=== PATIENT | female | born 1965 | race African-American/Black ===

== ENCOUNTER 2024-05-05 06:53 | Outpatient (CLI) | payer OTHER, SELFPAY ==
--- NOTE | ~2024-05-05 | MR_ITS ---
EXAMINATION: MR shoulder RT wo con DATE: 05/05/2024 07:48 INDICATION: Right rotator cuff tear presenting with right shoulder pain TECHNIQUE: Magnetic resonance imaging (MRI) of the right shoulder was performed without intravenous c ontrast. Sequences included axial PD-weighted FS FSE, coronal oblique PD-weighted FS FSE, coronal obl ique T2-weighted FS FSE, sagittal PD-weighted FS FSE, and sagittal T1-weighted SE. COMPARISON: None. FINDINGS: Coracoacromial arch: The acromion undersurface is curved in morphology (type II). The coracoacromial ligament is normal. M ild acromioclavicular osteoarthritis with small focus of low signal intensity likely gas within a deg enerative subarticular cyst at the clavicular side of the joint space. Rotator cuff: Moderate supraspinatus and mild infraspinatus tendinopathy with partial-thickness intrasubstance tear along the superior facet footplate of the supraspinatus tendon which measures 4 mm AP and involves u p to one third of the tendon thickness. Mild subscapularis tendinopathy without tear. The teres minor tendon is normal. Normal rotator cuff muscle bulk and signal. Biceps tendon, glenoid labrum and glenohumeral cartilage: Long head of the biceps tendon is normal. Glenoid labrum is normal. Glenohumeral cartilage is normal. Fluid: Physiologic amount of fluid in the glenohumeral joint space. Disproportionate mild increased fluid wi th mild tenosynovitis at the long head biceps tendon sheath. No loose osteochondral bodies. Small elisabeth unt of fluid in the subacromial/subdeltoid bursa consistent with mild bursitis. Bones: Bone alignment is normal. No fracture or pathologic marrow replacing process. Degenerative cystlike c hanges along the greater tuberosity likely related to chronic rotator cuff disease. IMPRESSION: 1. Mild to moderate rotator cuff tendinopathy, severe at the supraspinatus tendon where there is a ve ry small mild intrasubstance tear along the superior facet footplate. 2. Mild bicipital tenosynovitis with normal long head biceps tendon. 3. Mild acromioclavicular osteoarthritis with mild underlying subacromial/subdeltoid bursitis. Reviewed, dictated and finalized at location B. BUILDER IMPRESSION: 1. Mild to moderate rotator cuff tendinopathy, severe at the supraspinatus tend on where there is a very small mild intrasubstance tear along the superior face t footplate. 2. Mild bicipital tenosynovitis with normal long head biceps tendon. 3. Mild acromioclavicular osteoarthritis with mild underlying subacromial/subde ltoid bursitis.
--- OUTSIDE RECORDS SUMMARY | 2024-05-05 06:57 | XMS_ITS | Patient Health Summary ---
Author Organization [facility] Address [address] [place] [address] Care Team Providers Care Electric Range Assembler Name Role Phone Starr Davis MD Primary Care Provider Note from [facility],non-owned Affiliates and Associated Physician Practices is amultiple site organization consisting of ambulatory clinics and hospital sitesin [place], [place], [place] and [place]. This disclosure is being madepursuant to the Care Everywhere program and may not contain all information available regarding this patient. Last updated 17.[facility] Allergies No known active allergies Medications * Be aware that medications may not be up to date on this document. Alwaysverify current medications with the patient. * diclofenac sodium (VOLTAREN) 75 MG tablet TBEC(Started 12/22/2012) Take 1 Tab by mouth 2 times daily. 3 refills left Active Problems Problem Noted Date Diagnosed Date Degeneration of lumbar or lumbosacral interverte bral disc 12/24/2012 Social History Tobacco Use Types Packs/Day Years Used Date Smoking Tobacco: Some Days Alcohol Use Standard Drinks/Week Comments Yes 0 (1 standard drink = 0.6 oz pur e alcohol) Sex and Gender Information Value Date Recorded Sex Assigned at Not on file Gender Identity Not on file Sexual Orientation Not on file Last Filed Vital Signs Vital Sign Reading Time Taken Comments Blood Pressure 157/100 12/22/2012 11:21 AM CDT Pulse 85 06/10/2012 2:20 PM CDT Temperature 36.8 C (98.2 F) 06/10/2012 2:20 PM CDT Respiratory Rate 16 06/10/2012 2:20 PM CDT Oxygen Saturation - - Inhaled Oxygen Concentration - - Weight 116.6 kg (257 lb) 12/31/2012 10:11 AM CDT Height 165.1 cm (5' 5 ) 12/31/2012 10:11 AM CDT Body Mass Index 42.77 12/31/2012 10:11 AM CDT Procedures * XR KNEE LEFT 4VW OR MORE(Performed 12/31/2012) Performed for Pain in joint, lower leg * XR KNEE LEFT 4VW OR MORE(Performed 12/24/2012) * TRANSFERRIN(Performed 10/29/2011) * FERRITIN(Performed 10/29/2011) * D-DIMER(Performed 10/29/2011) * COMPREHENSIVE METABOLIC PANEL(Performed 10/29/2011) * RETIC COUNT(Performed 10/29/2011) * CBC W AUTO DIFFERENTIAL(Performed 10/29/2011) * CARDIOLIPIN ANTIBODY IGM(Performed 10/01/2011) * CARDIOLIPIN ANTIBODY IGG(Performed 10/01/2011) * CARDIOLIPIN ANTIBODY IGA(Performed 10/01/2011) * BETA-2 GLYCOPROTEIN 1 ANTIBODY IGM(Performed 10/01/2011) * BETA-2 GLYCOPROTEIN 1 ANTIBODY IGG(Performed 10/01/2011) * BETA-2 GLYCOPROTEIN 1 ANTIBODY IGA(Performed 10/01/2011) * LUPUS ANTICOAGULANT PANEL(Performed 10/01/2011) * ARABELLA VIPER VENOM DILUTE(Performed 10/01/2011) * PT MIX 03/11(Performed 10/01/2011) Results * XR KNEE 4+ VW LEFT (12/31/2012 10:05 AM CDT) Only the most recent of2 resultswithin the time period is included. Anatomical Region Laterality Modality Lower Extremity Radiographic Maite ging 12/31/2012 12:2 2 PM CDT Narrative 12/31/2012 12:38 PM CDT LEFT KNEE, 4 VIEW HISTORY: Pain. FINDINGS: There are tricompartmental hypertrophic degenerative changes with medial-sided joint space narrowing. Edited by Aretha Hair on 12/31/2012 12:30 PM Procedure Note Carmine Johnson MD - 12/31/2012 LEFT KNEE, 4 VIEW HISTORY: Pain. FINDINGS: There are tricompartmental hypertrophic degenerative changes with medial-sided joint space narrowing. Edited by Aretha Hair on 12/31/2012 12:30 PM Marco Mckenna MD DIAGNOSTIC IMAGING ORDERABLES * TRANSFERRIN (10/29/2011 10:20 AM CDT) Transferrin 344 174 - 382 mg/dL [facility] 10/29/2011 10:2 0 AM CDT 10/29/2011 11:15 AM CDT Joss Shah MD LAB - CHEMISTRY [place] Performing Organization Address [facility] Co de Phone Number [address] [phone] * (ABNORMAL) FERRITIN (10/29/2011 10:20 AM CDT) Pathologist [facility] Ferritin 1(L) 13 - 204 ng/mL [facility] 10/29/2011 10:2 0 AM CDT 10/29/2011 11:15 AM CDT Joss Shah MD LAB - CHEMISTRY [place] Performing Organization Address [facility] de Phone Number [address] [phone] * (ABNORMAL) D-DIMER (10/29/2011 10:19 AM CDT) [facility] D-Dimer Quantitative 0.55(H) 0.0 - 0.50 mcg/mL [facility] Comment: In the absence of clinical symptoms, a value less than or equal to 0.5 reliably excludes the diagnosis of acute PE/DVT 10/29/2011 10:1 9 AM CDT 10/29/2011 10:26 AM CDT Joss Shah MD LAB - COAGULATION OR DERABLES Performing Organization Address [facility] [place] [address], [facility] [phone] * RETIC COUNT (10/29/2011 10:19 AM CDT) [facility] Reticulocyte % 1.1 0.3 - 2.0 % [facility] Reticulocyte Absolute 0.05 0.02 - 0.10 # [facility] 10/29/2011 10:1 9 AM CDT 10/29/2011 10:26 AM CDT Joss Shah MD LAB - HEMATOLOGY ORD ERABLES [facility] [address] [phone] * (ABNORMAL) CBC W AUTO DIFFERENTIAL (10/29/2011 10:19 AM CDT) WBC 6.1 3.5 - 10.5 10^3/uL [facility] RBC 4.34 3.90 - 5.00 10^6/uL [facility] Hemoglobin 9.0(L) 12.0 - 15.5 g/dL [facility] Hematocrit 30.2(L) 35.0 - 45.0 % [facility] MCV 69.6(L) 81.0 - 97.0 FL [facility] MCH 20.7(L) 28.0 - 34.0 PG [facility] MCHC 29.8(L) 32.0 - 36.0 G/DL [facility] Platelet 428(H) 150 - 400 10^3/uL [facility] RDW 16.7(H) 11.2 - 14.8 % [facility] RDW-SD 42.9 36 - 50 FL [facility] MPV 9.4 9.3 - 12.8 FL [facility] Neutrophils % 61.2 35.0 - 70.0 % [facility] Lymphocytes % 29.2 19.7 - 55.1 % [facility] Monocytes % 8.3 3 - 15 % [facility] Eosinophils % 1.1 0.0 - 6.0 % [facility] Basophils % 0.2 0.0 - 1.5 % [facility] Neutrophils Absolute 3.8 1.7 - 7.0 10^3/uL [facility] Lymphocyte Absolute 1.8 0.8 - 2.9 10^3/uL [facility] Monocytes Absolute 0.5 0.14 - 0.66 10^3/uL [facility] Eosinophils Absolute 0.07 0.00 - 0.22 10^3/uL [facility] Basophils Absolute 0.01(L) 0.02 - 0.06 10^3/uL [facility] Differential Type AUTO DIFFERENTIAL [facility] Anisocytosis 1+ [facility] Microcytosis D 2+ [facility] Ovalocytes 1+ [facility] 10/29/2011 10:1 9 AM CDT 10/29/2011 10:26 AM CDT Joss Shah MD LAB - HEMATOLOGY ORD ERABLES [facility] [address] [place] [address] * (ABNORMAL) COMPREHENSIVE METABOLIC PANEL (10/29/2011 10:19 AM CDT) BUN 10 7 - 26 mg/dL [facility] Creatinine 0.8 0.6 - 1.2 mg/dL [facility] eGFR by MDRD > 60 ML/MIN [facility] Comment: Chronic kidney disease: <60 ml/min Kidney failure: <15 ml/min Based on BSA of 1.73m2. Sodium 140 136 - 145 mmol/L [facility] Potassium 4.3 3.5 - 4.5 mmol/L [facility] Chloride 108(H) 98 - 107 mmol/L [facility] CO2 24 22 - 29 mmol/L [facility] Glucose 92 70 - 115 mg/dL [facility] Calcium 8.6 8.4 - 10.2 mg/dL [facility] Protein Total 7.1 6.0 - 8.3 g/dL [facility] Albumin 3.3(L) 3.4 - 5.0 g/dL [facility] Bilirubin Total 0.2 0.2 - 1.2 mg/dL [facility] Alkaline Phosphatase 79 40 - 150 Units/L [facility] ALT 11 0 - 55 Units/L [facility] AST 13 5 - 34 Units/L [facility] Anion Gap 12 8 - 18 [facility] BUN/Creatinine Ratio 12 7 - 23 [facility] Osmolality Calculation 273 270 - 300 mOsm/kg [facility] Albumin/Globulin Ratio 0.9(L) 1.1 - 2.3 [facility] 10/29/2011 10:1 9 AM CDT 10/29/2011 10:26 AM CDT Joss Shah MD LAB - CHEMISTRY [place] [address] [phone] * BETA-2 GLYCOPROTEIN 1 ANTIBODY IGG (10/01/2011 12:20 PM CDT) Beta-2 Glycoprotein I Antibody IgG <20.0 <20.0 [facility] 10/01/2011 12:2 0 PM CDT 10/01/2011 12:47 PM CDT Joss Shah MD LAB - SEROLOGY ORDER DENN[place] [address] [phone] * BETA-2 GLYCOPROTEIN 1 ANTIBODY IGM (10/01/2011 12:20 PM CDT) Beta-2 Glycoprotein I Antibody IgM <20.0 <20.0 [facility] 10/01/2011 12:2 0 PM CDT 10/01/2011 12:47 PM CDT Joss Shah MD LAB - SEROLOGY ORDER [place] [address] [phone] * PT MIX 03/11 (10/01/2011 12:20 PM CDT) APTT 28.3 24.0 - 38.0 SECONDS [facility] PT 12.8 12.1 - 14.8 SECONDS [facility] INR 1.0 [facility] Dilute Prothrombin Time Index 1.16 <1.31 [facility] Interpretation dPT NEGATIVE NEGATIVE S [facility] 10/01/2011 12:2 0 PM CDT 10/01/2011 12:47 PM CDT Joss Shah MD LAB - COAGULATION OR DERABLES [address] [phone] * LUPUS ANTICOAGULANT PANEL (10/01/2011 12:20 PM CDT) [facility] Buffer 43.8 SECONDS [facility] Phospholipid 40.6 SECONDS [facility] [place]OT [place] Delta Seconds 3.2 <9.0 SECONDS [facility] Interpretation [facility] NEGATIVE NEGATIVE [facility] Comment: Up to 15-20% of patients with lupus anticoagulant associated with antiphospholipid antibody syndrome (APAS) will have negative STACLOT-LA results. For these patients we recommend additional testing to include the Dilute Arabella Viper Venom Time (DRVVT) and dilute prothrombin time (Dilute PT) tests. Immunoassay measurements of anti-cardiolipin and anti-beta-2 glycoprotein 1 are recommended if the DRVVT, DIL-PT and STACLOT-LA tests are negative and there is clinical suspicion of APAS. 10/01/2011 12:2 0 PM CDT 10/01/2011 12:47 PM CDT Joss Shah MD LAB - HEMATOLOGY ORD ERABLES Performing Organization Address City/[facility]/ZIP Co de Phone Number [address] [phone] * CARDIOLIPIN ANTIBODY IGA (10/01/2011 12:20 PM CDT) Anticardiolipin Antibody IgA <15.0 <15.0 APL [facility] 10/01/2011 12:2 0 PM CDT 10/01/2011 12:47 PM CDT Joss Shah MD LAB - SEROLOGY ORDER [place] [address] [phone] * CARDIOLIPIN ANTIBODY IGM (10/01/2011 12:20 PM CDT) Anticardiolipin Antibody IgM <15.0 <15.0 MPL [facility] 10/01/2011 12:2 0 PM CDT 10/01/2011 12:47 PM CDT Joss Shah MD LAB - SEROLOGY ORDER [place] [address] [phone] * CARDIOLIPIN ANTIBODY IGG (10/01/2011 12:20 PM CDT) Anticardiolipin Antibody IgG <15.0 <15.0 GPL [facility] 10/01/2011 12:2 0 PM CDT 10/01/2011 12:47 PM CDT Joss Shah MD LAB - SEROLOGY ORDER [place] [address] [phone] * BETA-2 GLYCOPROTEIN 1 ANTIBODY IGA (10/01/2011 12:20 PM CDT) Beta-2 Glycoprotein I Antibody IgA <20.0 <20.0 [facility] 10/01/2011 12:2 0 PM CDT 10/01/2011 12:47 PM CDT Joss Shah MD LAB - [place] [address], [facility] [phone] * ARABELLA VIPER VENOM DILUTE (10/01/2011 12:20 PM CDT) LA-DRVVT Screen 1.0 <1.2 [facility] Interpretation Dilute RVV NEGATIVE NEGATIVE [facility] 10/01/2011 12:2 0 PM CDT 10/01/2011 12:47 PM CDT Joss Shah MD LAB - COAGULATION OR DERABLES [facility] [address] [place] [address] Care Teams Electric Range Assembler Relationship Specialty Start Date End Date Starr Davis MD [address] [place] [address] [place] [phone] PCP - General Family Medicine 12/26/12
--- OUTSIDE RECORDS SUMMARY | 2024-05-05 06:57 | XMS_ITS | Clinical Summary ---
Author Organization [facility] Address [address] [place] [address] Care Team Providers Care Asbestos Worker Name Role Phone Starr Davis MD Primary Care Provider Source Comments [facility],non-owned Affiliates and Associated Physician Practices is amultiple site organization consisting of ambulatory clinics and hospital sitesin [place], [place], [place] and [place]. This disclosure is being madepursuant to the Care Everywhere program and may not contain all information available regarding this patient. Last updated 17.[facility] Allergies No known active allergies Medications * Be aware that medications may not be up to date on this document. Alwaysverify current medications with the patient. Medication Sig Dispensed Refills Start Date End Date Status diclofenac sodium (VOLTAREN) 75 MG tablet TBEC Take 1 Tab by mouth 2 times daily. 60 Tab 3 12/22/2012 Active Active Problems Problem Noted Date Diagnosed Date [...] Mass Index 42.77 12/31/2012 10:11 AM CDT Plan of Treatment Health Maintenance Due Date Last Done Comments COLOGUARD (AGES 45-75) - COL ON CA SCREENING 1966 COLON MONITORING 1966 COLONOSCOPY - COLON CA SCREENING 1966 CT COLONOGRAPHY - COLON CA SCREENING 1966 Colorectal Cancer Screening 1966 FIT - COLON CA SCREENING 1966 FLEX SIG - COLON CA SCREENING 1966 LIPID TESTING 1966 MAMMOGRAM 1966 PAP SMEAR 1966 HIV SCREENING 1981 HEPATITIS C SCREENING 05/27/1984 DTAP/TDAP/TD VACCINES (1 - Tdap) 1985 HEPATITIS B VACCINE (1 of 3 - 19+ 3-dose series) 1985 PNEUMOCOCCAL VACCINE 50+ (1 of 2 - PCV) 1985 PNEUMOCOCCAL VACCINE (1 of 2 - PCV) 1985 ZOSTER VACCINE (1 of 2) 2016 COVID-19 VACCINE (1 - 2023-2 5 season) 2023 INFLUENZA VACCINE (#1) 2023 DEPRESSION SCREENING 03/11/2024 HIB VACCINE Aged Out No longer eligi ble based on patient's age to complete this topic HPV VACCINE Aged Out No longer eligi ble based on patient's age to complete this topic MENINGOCOCCAL (Group B) VACCINE Aged Out No longer eligible based on patient's age to complete this topic MENINGOCOCCAL VACCINE Aged Out No moises eladio eligible based on patient's age to complete this topic Care Teams Asbestos Worker Relationship Specialty Start Date End Date Starr Davis MD [address] [place] [address] [place] [phone] PCP - General Family Medicine 12/26/12
--- OUTSIDE RECORDS SUMMARY | 2024-05-05 06:57 | XMS_ITS | Referral Summary ---
Author Organization [email or web address] Address [address] [facility] [place] [address] Care Team Providers Care Regional Sales Associate Name Role Phone Starr Davis MD Primary Care Provider Source Comments [email or web address],non-owned Affiliates and Associated Physician Practices is amultiple site organization consisting of ambulatory clinics and hospital sitesin [place], [place], [place] and [place]. This disclosure is being madepursuant to the Care Everywhere program and may not contain all information available regarding this patient. Last updated 17.[email or web address] Allergies No known active allergies Medications * [...] 12/31/2012 10:11 AM CDT Plan of Treatment Not on file Care Teams Regional Sales Associate Relationship Specialty Start Date End Date Starr Davis MD [address] [place] [address] [place] [phone] PCP - General Family Medicine 12/26/12
--- OUTSIDE RECORDS SUMMARY | 2024-05-05 06:57 | XMS_ITS | Data Portability ---
Author Organization [place] - [facility] My Dentist, Main Office Address [address] [place] [address] Assessment No assessment recorded. Plan of Treatment Reminders Order Date Submit Date Provider Last Modified By Organization Details Last Modified Time Details Appointments None recorded. Lab HbA1c (hemoglobin A1c), blood [email or web address] (Lab), [address] [place], [address], 3 08:09:33 iron + total iron-bindin g capacity (TIBC), serum [email or web address] (Lab), [address] [place], [address], 3 08:09:33 ferritin, serum or plasma [address] (Lab), [address] [place], [address], 3 08:09:33 vitamin B12 + folate, serum or blood [email or web address] (Lab), [address] [place], [address], 3 08:09:33 vitamin D, 25-hydroxy, total, serum [address] (Lab), [address] [place], [address], 3 08:09:33 CBC 2022 023 [email or web address] [facility] (Lab), [address] [place], [address], 3 08:09:33 TSH, serum or plasma [address] (Lab), [address] [place], [address], 3 16:11:19 lipid panel, serum [address] (Lab), [address] [place], [address], 3 16:11:46 urinalysis, complete [address] (Lab), [address] [place], [address], 3 16:15:44 HbA1c (hemoglobin A1c), blood [address] (Lab), [address] [place], [address], 3 16:12:28 CMP, serum or plasma [address] (Lab), [address] [place], [address], 3 16:13:19 CBC [address] (Lab), [address] [place], [address], 3 16:14:04 Referral orthopedic surgeon referral - Please call patient to schedule an appointment . Thank you. 2024 025 [email or web address] [facility], [address], [place], [address], 5 08:55:06 physical therapist referral - Please call pt to schedule 2023 024 [facility], [address] [place], [address], 4 12:49:53 physical therapist referral 2022 [email or web address] [place] [address] Physical, [facility], [address] [place], [address], 3 08:40:13 Procedures None recorded. Surgeries None recorded. Imaging US, thyroid - Please call pt to schedule 2024 025 [facility] ([facility]), [address] [place], [address], 5 14:35:18 XR, lumbar spine 2023 024 [facility] ([facility]), [address] [place], [address], 4 10:53:23 MAMMO, screening, digital, bilateral - *please call pt to schedule* 2022 023 [facility] ([facility]), [address] [place], [address], 3 18:46:43 Medication Orders ibuprofen 800 mg tablet 2024 025 [id number], [address] , [place], [place], [id number], 5 10:10:05 cyclobenzap rine 5 mg tablet [address]23 [email or web address] [id number], [address], [place], [place], [id number], 5 09:58:13 ibuprofen 800 mg tablet 2023 024 [email or web address] [address] [id number], [address], [place], [place], [id number], 09:58:16 Patient TargetsNo targets recorded. Patient Instructions Encounter Date Encounter Id Patient Instructions Last Modified By Organization Details Last Modified Time 08/23/2022 [id number] risk assessment* MARSHAL Not availabl e 08/23/2022 14:25:27 Reason for Referral Physical Therapist Referral for Pain of bilateral knee joints Referring Physician: [facility], Encounter Date: 08/23/2022 Physical Therapist Referral for Low back pain Please call pt to schedule Referring Physician: Brit Stovall [facility] Medicine, Encounter Date: 12/19/2023 Orthopedic Surgeon Referral for Pain of right shoulder joint Please call patient to schedule an appointment. Thank you. Referring Physician: Brit Stovall [facility] Medicine, Encounter Date: 03/31/2024 Results Created Date Observation Date Name Description Value Unit Range Abnormal Flag Note LastModifiedBy Organization Detail LastModifiedTime 08/24/1908/23/2022 CBC W/O DIFFE RENTI AL white blood cells 3.8 x10'3 /uL 4.2-10 .8 low Not Available [facility] (Lab) [address] [place], [address], 08/23/2022 20:07:33 08/24/19 23 08/23/2022 CBC W/O DIFFE RENTI AL red blood cells 4.58 x10'6 /uL 3.80-5 .20 Not Available [facility] (Lab) [address] [place], [address], 08/23/2022 20:07:33 08/24/19 23 08/23/2022 CBC W/O DIFFE RENTI AL hemoglobin 12.3 g/dL 12.0-1 5.6 Not Available [facility] (Lab) [address] [place], [address], 08/23/2022 20:07:33 08/24/19 23 08/23/2022 CBC W/O DIFFE RENTI AL hematocrit 40.1 % 35.7-4 5.7 Not Available [facility] (Lab) [address] [place], [address], 08/23/2022 20:07:33 08/24/19 23 08/23/2022 CBC W/O DIFFE RENTI AL mean red cell volume 87.6 fL 82.0-9 9.0 Not Available [facility] (Lab) [address] [place], [address], 08/23/2022 20:07:33 08/24/19 23 08/23/2022 CBC W/O DIFFE RENTI AL mean red cell hemoglobin 26.9 pg 27.0-3 3.0 low Not Available [facility] (Lab) [address] [place], [address], 08/23/2022 20:07:33 08/24/19 23 08/23/2022 CBC W/O DIFFE RENTI AL mean RBC HGB concentratio n 30.7 g/dL 31.0-3 6.0 low Not Available [facility] (Lab) [address] [place], [address], 08/23/2022 20:07:33 08/24/19 23 08/23/2022 CBC W/O DIFFE RENTI AL red cell distribution width 14.7 % 11.8-1 5.5 Not Available [facility] (Lab) [address] [place], [address], 08/23/2022 20:07:33 08/24/19 23 08/23/2022 CBC W/O DIFFE RENTI AL platelets 269 x10'3 /uL 150-40 0 Not Available [facility] (Lab) [address] [place], [address], 08/23/2022 20:07:33 08/24/19 23 08/23/2022 CBC W/O DIFFE RENTI AL mean platelet volume 10.9 fL 9.0-12 .4 Not Available [facility] (Lab) [address] [place], [address], 08/23/2022 20:07:33 08/24/19 23 08/23/2022 HEMOG LOBIN A1C HA1C 6.1 % 4.0-6. 0 high Diabe kash Scree gabriel Crite stefanie: <5.7% Consi stent with absen ce of diabe kash 5.7-6 .4% Consi stent with incre ased risk for diabe kash (pred iabet es) >OR=6 .5% Consi stent with diabe kash REFER ENCE: Diabe kash Care 2016, 39(Dalton ppl.1 ):s13 -s22 Not Available [facility] (Lab) [address] [place], [address], 08/23/2022 20:29:56 08/24/19 23 08/23/2022 URINA LYSIS COMPL ETE, IRIS color YELLOW Not Available [facility] (Lab) [address] [place], [address], 08/23/2022 20:30:22 08/24/19 23 08/23/2022 URINA LYSIS COMPL ETE, IRIS appear TURBID abnormal Not Available [facility] (Lab) [address] [place], [address], 08/23/2022 20:30:22 08/24/19 23 08/23/2022 URINA LYSIS COMPL ETE, IRIS specific gravity 1.019 1.001- 1.030 Not Available [facility] (Lab) [address] [place], [address], 08/23/2022 20:30:22 08/24/19 23 08/23/2022 URINA LYSIS COMPL ETE, IRIS pH 6.5 pH_un its 5.0-9. 0 Not Available [facility] (Lab) [address] [place], [address], 08/23/2022 20:30:22 08/24/19 23 08/23/2022 URINA LYSIS COMPL ETE, IRIS leukocytes NEGATI VE elisabet/u L negati ve- Not Available [facility] (Lab) [address] [place], [address], 08/23/2022 20:30:22 08/24/19 23 08/23/2022 URINA LYSIS COMPL ETE, IRIS nitrite NEGATI VE negati ve- Not Available [facility] (Lab) [address] [place], [address], 08/23/2022 20:30:22 08/24/19 23 08/23/2022 URINA LYSIS COMPL ETE, IRIS protein NEGATI VE mg/dL negati ve- Not Available [facility] (Lab) [address] [place], [address], 08/23/2022 20:30:22 08/24/19 23 08/23/2022 URINA LYSIS COMPL ETE, IRIS glucose NORMAL mg/dL normal - Not Available [facility] (Lab) [address] [place], [address], 08/23/2022 20:30:22 08/24/19 23 08/23/2022 URINA LYSIS COMPL ETE, IRIS ketones NEGATI VE mg/dL negati ve- Not Available [facility] (Lab) [address] [place], [address], 08/23/2022 20:30:22 08/24/19 23 08/23/2022 URINA LYSIS COMPL ETE, IRIS urobilinogen NORMAL mg/dL normal - Not Available [facility] (Lab) [address] [place], [address], 08/23/2022 20:30:22 08/24/19 23 08/23/2022 URINA LYSIS COMPL ETE, IRIS bilirubin NEGATI VE mg/dL negati ve- Not Available [facility] (Lab) [address] [place], [address], 08/23/2022 20:30:22 08/24/19 23 08/23/2022 URINA LYSIS COMPL ETE, IRIS blood NEGATI VE mg/dL negati ve- Not Available [facility] (Lab) [address] [place], [address], 08/23/2022 20:30:22 08/24/19 23 08/23/2022 URINA LYSIS COMPL ETE, IRIS white blood cells 0-8 /i??h pfi?? 0-8 Not Available [facility] (Lab) [address] [place], [address], 08/23/2022 20:30:22 08/24/19 23 08/23/2022 URINA LYSIS COMPL ETE, IRIS red blood cells 0-4 /i??h pfi?? 0-4 Not Available [facility] (Lab) [address] [place], [address], 08/23/2022 20:30:22 08/24/19 23 08/23/2022 URINA LYSIS COMPL ETE, IRIS bacteria NONE Not Available [facility] (Lab) [address] [place], [address], 08/23/2022 20:30:22 08/24/19 23 08/23/2022 URINA LYSIS COMPL ETE, IRIS mucous FEW /i??l pfi?? abnormal Not Available [facility] (Lab) [address] [place], [address], 08/23/2022 20:30:22 08/24/19 23 08/23/2022 URINA LYSIS COMPL ETE, IRIS squamous epithelial MANY /i??l pfi?? abnormal Not Available [facility] (Lab) [address] [place], [address], 08/23/2022 20:30:22 08/24/19 23 08/23/2022 LIPID PANEL cholesterol 156 mg/dL 140-19 9 NIH CASEY NSUS RECOM MENDA TION FOR ELAINE STERO L: ADULT CHILD LOW RISK: <200 <170 BORDE RLINE : <200- 239 ----- HIGH RISK: >240 >200 Not Available [facility] (Lab) [address] [place], [address], 08/23/2022 21:11:21 08/24/19 23 08/23/2022 LIPID PANEL triglyceride s 60 mg/dL 0-150 NIH CASEY NSUS REPOR T RECOM MENDA TION FOR TRIGL YCERI GORDON: ADULT CHILD LOW RISK: <150 ----- BODER LINE: 150-1 99 ----- HIGH RISK: >200 ----- Not Available [facility] (Lab) [address] [place], [address], 08/23/2022 21:11:21 08/24/19 23 08/23/2022 LIPID PANEL HDL cholesterol 91 mg/dL 40- Not Available [facility] (Lab) [address] [place], [address], 08/23/2022 21:11:21 08/24/19 23 08/23/2022 LIPID PANEL LDL cholesterol, calculated 53 mg/dL 0-130 NIH CASEY NSUS REPOR T RECOM MENDA TIONS FOR LDL: ADULT CHILD LOW RISK <130 <110 (OPTI MAL LDL) <100 ----- BORDE RLINE : 130-1 59 ----- HIGH RISK: >160 >130 A TRIGL YCERI DE RESUL T >400 INVAL IDATE S THE CALCU LATIO N FOR LDL FRACT IONAT ION - THE LDL RESUL T WILL NOT BE REPOR BALBIR. Not Available [facility] (Lab) [address] [place], [address], 08/23/2022 21:11:21 08/24/19 23 08/23/2022 COMPR EHENS THOR METAB OLIC PANEL sodium 141 mmol/ L 137-14 5 Not Available [facility] (Lab) [address] [place], [address], 08/23/2022 21:11:26 08/24/19 23 08/23/2022 COMPR EHENS THOR METAB OLIC PANEL potassium 4.0 mmol/ L 3.5-5. 1 Not Available [facility] (Lab) [address] [place], [address], 08/23/2022 21:11:26 08/24/19 23 08/23/2022 COMPR EHENS THOR METAB OLIC PANEL chloride 105 mmol/ L 98-107 Not Available [facility] (Lab) [address] [place], [address], 08/23/2022 21:11:26 08/24/19 23 08/23/2022 COMPR EHENS THOR METAB OLIC PANEL carbon dioxide 26 mmol/ L 22-30 Not Available [facility] (Lab) [address] [place], [address], 08/23/2022 21:11:26 08/24/19 23 08/23/2022 COMPR EHENS THOR METAB OLIC PANEL anion gap 14.0 mmol/ L 14-22 Not Available [facility] (Lab) [address] [place], [address], 08/23/2022 21:11:26 08/24/19 23 08/23/2022 COMPR EHENS THOR METAB OLIC PANEL glucose 81 mg/dL 70-99 Not Available [facility] (Lab) [address] [place], [address], 08/23/2022 21:11:26 08/24/19 23 08/23/2022 COMPR EHENS THOR METAB OLIC PANEL BUN 18 mg/dL 8-19 Not Available [facility] (Lab) [address] [place], [address], 08/23/2022 21:11:26 08/24/19 23 08/23/2022 COMPR EHENS THOR METAB OLIC PANEL creatinine 0.72 mg/dL 0.66-1 .25 Not Available [facility] (Lab) [address], [place], [address], 08/23/2022 21:11:26 08/24/19 23 08/23/2022 COMPR EHENS THOR METAB OLIC PANEL GFR >60 Refer ence Range : [place] ge GFR Healt hy Adult : >60 mL/mi n/1.7 3 m2 Chron ic Kidne y Disea se: 15-60 mL/mi n/1.7 3 m2 Kidne y Failu re: <15/m L/min /1.73 m2 www.n iddk. nih.g ov The MDRD study equat ion has not been valid ated in child victoria <18 years of age; pregn ant women ; the elder ly >85 years of age; or in some racia l or ethni c subgr oups, such as pr nics. Outsi de the valid ated ada eters , estim ated GFR is less accur ate, requi ring clini jeffrey judgm ent on a case- by-ca se basis . Clini jeffrey inter preta tion for other races and ages must be made by the clini tiny. The MDRD study equat ion has not been valid ated for the evalu ation of serum creat inine relat ed to nutri jose l statu s or medic ation usage . For perso ns <18 years of age, a pedia tric GFR calcu lator is avail able on the [facility] websi te: https ://arianna weir.o rg/pr ofess ional s/kdo qi/gf r_cal culat or Not Available [facility] (Lab) [address] [place], [address], 08/23/2022 21:11:26 08/24/19 23 08/23/2022 COMPR EHENS THOR METAB OLIC PANEL alkaline phosphatase 92 U/L 38-126 Not Available [facility] (Lab) [address] [facility] [place], [address], 08/23/2022 21:11:26 08/24/19 23 08/23/2022 COMPR EHENS THOR METAB OLIC PANEL alanine aminotransfe rase 17 U/L 0-35 Not Available [facility] (Lab) [address] [place], [address], 08/23/2022 21:11:26 08/24/19 23 08/23/2022 COMPR EHENS THOR METAB OLIC PANEL aspartate aminotransfe rase 25 U/L 15-37 Not Available [facility] (Lab) [address] [place], [address], 08/23/2022 21:11:26 08/24/19 23 08/23/2022 COMPR EHENS THOR METAB OLIC PANEL bilirubin, total 0.60 mg/dL 0.20-1 .30 Not Available [facility] (Lab) [address] [place], [address], 08/23/2022 21:11:26 08/24/19 23 08/23/2022 COMPR EHENS THOR METAB OLIC PANEL calcium 8.8 mg/dL 8.4-10 .2 Not Available [facility] (Lab) [address] [place], [address], 08/23/2022 21:11:26 08/24/19 23 08/23/2022 COMPR EHENS THOR METAB OLIC PANEL total protein 6.9 g/dL 6.3-8. 2 Not Available [facility] (Lab) [address] [place], [address], 08/23/2022 21:11:26 08/24/19 23 08/23/2022 COMPR EHENS THOR METAB OLIC PANEL albumin 3.7 g/dL 3.4-5. 0 Not Available [facility] (Lab) [address] [place], [address], 08/23/2022 21:11:26 08/24/19 23 08/23/2022 COMPR EHENS THOR METAB OLIC PANEL globulin 3.2 g/dL 2.6-4. 2 Not Available [facility] (Lab) [address] [place], [address], 08/23/2022 21:11:26 08/24/19 23 08/23/2022 COMPR EHENS THOR METAB OLIC PANEL A/G ratio 1.2 ratio 1.0-2. 0 Not Available [facility] (Lab) [address] [place], [address], 08/23/2022 21:11:26 08/24/19 23 08/23/2022 TSH thyroid-stim ulating hormone 0.516 uIU/m L 0.465- 4.680 Not Available [facility] (Lab) [address] [place], [address], 08/23/2022 21:33:30 12/13/19 22 XR, knee, 3 view No observ ation record ed. [id number] [facility] [place] [address], [place], [address], 05/09/2022 08:54:08 08/31/19 23 08/30/2022 MAMMO , scree gabriel, digit al, bilat eral No observ ation record ed. [email or web address] [facility] [address] [place], [address], 09/06/2022 09:18:10 01/03/20 24 01/03/2024 XR, lumba r spine No observ ation record ed. [email or web address] [facility] [address] [place], [address], 01/06/2024 15:15:47 03/27/19 25 03/27/2024 imagi ng/di agnos tic resul t No observ ation record ed. [facility] [address] [place], [address], 03/28/2024 09:03:00 03/27/19 25 03/27/2024 imagi ng/di agnos tic resul t No observ ation record ed. [facility] [address] [place], [address], 03/28/2024 09:11:36 03/27/19 25 03/27/2024 imagi ng/di agnos tic resul t No observ ation record ed. [facility] [address] [place], [address], 03/28/2024 09:16:37 03/27/19 25 03/27/2024 imagi ng/di agnos tic resul t No observ ation record ed. [facility] [address] [place], [address], 03/28/2024 10:04:03 03/27/19 25 03/27/2024 imagi ng/di agnos tic resul t No observ ation record ed. [facility] [address] [place], [address], 03/28/2024 10:05:03 03/27/19 25 03/27/2024 imagi ng/di agnos tic resul t No observ ation record ed. [facility] [address] [place], [address], 03/28/2024 10:20:37 03/27/19 25 03/27/2024 imagi ng/di agnos tic resul t No observ ation record ed. [facility] [address] [place], [address], 03/28/2024 10:48:40 03/27/19 25 03/27/2024 imagi ng/di arianeos tic resul t No observ ation record ed. [facility] [address] [place], [address], 03/28/2024 10:51:43 04/10/19 25 04/10/2024 US, thyro id No observ ation record ed. [facility] [address] [place], [address], 04/15/2024 09:48:13 Result Notes None recorded. Problems Name Problem SNOMED Code Status Onset Date Resolution Date Notes Provider Name and Address Organization Details Recorded Time Pain in lower limb 46384314 Active Not Available [facility] 3 08:49:01 Deep venous thrombosis 716585451 Active Not Available [facility] 3 08:49:01 Low back pain 292402515 Active Not Available [facility] 3 08:49:01 Knee pain Active Not Available [facility] 3 08:49:01 Osteoarthr itis of left knee joint 2370520299028 09 Active 2021 Not Available [facility] 3 08:49:01 Osteoarthr itis of right knee joint 6264988823747 00 Active 2021 Not Available [facility] 3 08:49:02 Obesity 914390704 Active Not Available [facility] 3 08:49:02 Shoulder pain 60439836 Active [facility] Available [facility] 3 08:49:02 Anxiety 13031561 Active Not Available [facility] 3 08:49:02 Hip pain 31960824 Active Not Available [facility] 3 08:49:02 Malignant essential hypertensi on 02351283 Active Not Available [facility] 3 08:49:02 Pain of bilateral knee joints 4394942215067 04 Active 2022 Lori LEO Vega [address], [place], [address] , [facility] 3 09:57:40 Elevated blood-pres sure reading without diagnosis of hypertensi on 611792404 Active 2022 Kamarkatya LEO Vega [address], [place], [address] , [facility] 3 09:05:56 Prediabete s 547855008 Active 2022 Kamarkatya LEO Vega [address], [place], [address] , [facility] 3 09:12:33 Anemia 013157029 Active 2022 LEO Frye [address], [place], [address] , [facility] 3 09:13:11 Leukopenia 87321896 Active 2022 LEO Frye [address], [place], [address] , [facility] 3 13:24:46 Pain of right shoulder joint 1079225277608 9100 Active 2024 JOANNA Clark [address], [place], [address] , [facility] 5 10:05:41 Thyroid nodule 976981457 Active 2024 JOANNA Clark [address], [place], [address] , [facility] 5 10:06:43 Problem Notes None recorded. Procedures Surgical History Date Name Laterality Status Provider Name and Address Organization Details Recorded Time laparoscopic sleeve gastrectomy completed Not Available [facility] 05/09/2022 08:44:56 Cyst Removal completed Not Available [facility] 05/09/2022 08:44:56 Imaging Results Imaging Date Name Status LastModified by [facility]iz [facility] Details LastModified Time 12/12/2021 XR, knee, 3 view completed [id number] [facility] [place] [address], [place], [address], 05/09/2022 08:54:08 08/30/2022 MAMMO, screening, digital, bilateral completed [facility] [address] [place], [address], 09/06/2022 09:18:10 01/03/2024 XR, lumbar spine completed [email or web address] [facility] [address] [place], [address], 01/06/2024 15:15:47 03/27/2024 imaging/diagno stic result active [facility] [address] [place], [address], 03/28/2024 09:03:00 03/27/2024 imaging/diagno stic result active [facility] [address] [place], [address], 03/28/2024 09:11:36 03/27/2024 imaging/diagno stic result active [facility] [address] [place], [address], 03/28/2024 09:16:37 03/27/2024 imaging/diagno stic result active [facility] [address] [place], [address], 03/28/2024 10:04:03 03/27/2024 imaging/diagno stic result active [facility] [address] [place], [address], 03/28/2024 10:05:03 03/27/2024 imaging/diagno stic result active [facility] [address] [place], [address], 03/28/2024 10:20:37 03/27/2024 imaging/diagno stic result active [facility] [address] [place], [address], 03/28/2024 10:48:40 03/27/2024 imaging/diagno stic result active [facility] [address] [place], [address], 03/28/2024 10:51:43 04/10/2024 US, thyroid completed [facility] [address] [place], [address], 04/15/2024 09:48:13 Procedure Notes None recorded. Medical Equipment None Reported. Allergies No known drug allergies Medications Name Sig Start Date Stop Date Status Note LastModified by Organization Details LastModified Time amoxicillin 500 mg capsule TAKE 1 CAPSULE BY MOUTH THREE TIMES DAILY UNTIL ALL TAKEN 12/18 completed Not Available Not Available Not Available prednisone 10 mg tablet TAKE 1 TABLET BY MOUTH TWICE DAILY FOR 10 DAYS active Not Available Not Available No t Available ibuprofen 800 mg tablet TAKE 1 TABLET BY MOUTH THREE TIMES DAILY active Not Available Not Available No t Available prednisone 10 mg tablets in a dose pack Take 1 tab by mouth, 3 times a day for 3 daysTake 1 tab by mouth 2 times a day for 2 daysTake 1 tab by mouth once a day for 1 day 08/23 completed Not Available Not Available Not Available amitriptyli ne 25 mg tablet 12/12 completed Not Available Not Available Not Available Kenalog 10 mg/mL suspension for injection In office injection administe red by the provider 08/23 completed [facility]: 0003- 0494- 20 Not Available Not Available Not Available promethazin e 25 mg tablet 12/12 completed Not Available Not Available Not Available warfarin 5 mg tablet take medicatio n as directed and get blood work done every week, 12/12 completed Not Available Not Available Not Available hydrocodone 10 mg-acetamin ophen 650 mg tablet 12/12 completed Not Available Not Available Not Available ketamine (bulk) 100 % powder 12/12 completed Not Available Not Available Not Available cyclobenzap rine 5 mg tablet TAKE 1 TABLET BY MOUTH EVERY DAY 03/31 completed Not Available Not Available Not Available ropivacaine (PF) 5 mg/mL (0.5 %) injection solution Take 40 mg by injection route. 08/23 completed Not Available Not Available Not Available Victoza 2-Dalton 0.6 mg/0.1 mL (18 mg/3 mL) subcutaneou s pen injector 12/12 completed Not Available Not Available Not Available aspirin 81 mg capsule Take 1 capsule every day by oral route. active Not Available Not Available No t Available Vitals Date Recorded Body mass index (BMI) Body height Body weight Provider Name and Address Organization Details Last Updated DateTime 12/12/2021 35.8 kg/m2 165.1 cm 79629.36 g Not Available [facility] 05/09/2022 08:46:02 Date Recorded Body height Body mass index (BMI) Body weight Body temperature Heart rate Oxygen saturation Oxygen saturation in Arterial blood by Pulse oximetry Systolic blood pressure Diastolic blood pressure Provider Name and Address Organization Details Last Updated DateTime 3 165.1 cm 35.6 kg/m2 37793.7 7 g 97.4 [degF] 65 /min 100 % 100 % 142 mm[Hg] 88 mm[Hg] Felecia juárez CMA [facility] [facility] 3 09:33:36 Date Recorded Body height Body mass index (BMI) Body weight Body temperature Heart rate Oxygen saturation Oxygen saturation in Arterial blood by Pulse oximetry Systolic blood pressure Diastolic blood pressure Provider Name and Address Organization Details Last Updated DateTime 3 165.1 cm 35.9 kg/m2 26277.9 5 g 96.2 [degF] 77 /min 99 % 99 % 164 mm[Hg] 100 mm[Hg] Kristie Kinsey RN [facility] [employer] [facility] 3 09:00:22 Date Recorded Body weight Body temperature Heart rate Oxygen saturation Oxygen saturation in Arterial blood by Pulse oximetry Systolic blood pressure Diastolic blood pressure Provider Name and Address Organization Details Last Updated DateTime 4 215147. 91 g 97.5 [degF] 89 /min 99 % 99 % 148 mm[Hg] 88 mm[Hg] Tristin Natarajan RN [facility] [employer] [facility] 4 11:34:12 Date Recorded Body weight Body temperature Heart rate Oxygen saturation Oxygen saturation in Arterial blood by Pulse oximetry Systolic blood pressure Diastolic blood pressure Provider Name and Address Organization Details Last Updated DateTime 5 855238. 06 g 97.7 [degF] 92 /min 98 % 98 % 156 mm[Hg] 90 mm[Hg] Tristin Natarajan RN [place] [facility] [employer] [facility] 5 09:57:54 Social History Question Answer Notes LastModified by Organizat ion Details LastModified Time Tobacco Smoking Status Never Smoker Not Available [employer] 05/09/2022 08:44:24 What Is Your Level Of Alcohol Consumption? None [id number] Information not available 05/09/2022 What Is Your Level Of Caffeine Consumption? None [id number] Information not available 08/23/2022 Sex: Female Functional Status None recorded. Mental Status None recorded. Family History Relationship Description Onset Age of this Age Resolved Age Notes LastModified by Organization Details LastModified Time Unspecified Relation Blood coagulation disorder [id number] Not available 05/09/2022 08:44:57 Medical History Condition Response ARTHRITIS Y BLOOD CLOTS Y ANEMIA/BLOOD DISORDER Y Gynecological History Statement/Question Response Date of Last Mammogram 08/30/2022 Obstetrics History GPAL:G 3 P 3 0 0 3 Type Value Full Term 3 Living 3 Total 3 Past Encounters Encounter ID Performer Location Encounter Start Date Encounter Closed Date Diagnosis/Indication Diagnosis SNOMED-CT Code Diagnosis ICD10 Code Diagnosis Note [id number] [facility] Jose Wong [address] [place] [address] 12/12/2021 00:00:00 12/12/2021 15:20:28 [id number] LEO Frye [facility] [address] [facility] [place] [address] 08/23/2022 09:16:00 08/23/2022 12:57:15 Pain of bilateral knee joints 3006812168 68902 M25.561 M25.562 ChronicBe safe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
--- OUTSIDE RECORDS SUMMARY | 2024-05-05 06:57 | XMS_ITS | Continuity of Care Document ---
Author Organization [facility] Address [address] [place] [address] [address] [place] [address] Phone Care Team Providers Care Director Of Online Merchandising Name Role Phone MathewMichael Gilbert Unavailable Unavailable Procedures Procedure Date THERAPEUTIC EXERCISES NEUROMUSCULAR RE-ED FUNC ACTIVITY 15 MIN HOT/COLD PACK ELECTRIC STIMULATION UNA THERAPEUTIC EXERCISES NEUROMUSCULAR RE-ED MANUAL THERAPY FUNC ACTIVITY 15 MIN HOT/COLD PACK ELECTRIC STIMULATION UNA THERAPEUTIC EXERCISES NEUROMUSCULAR RE-ED MANUAL THERAPY FUNC ACTIVITY 15 MIN HOT/COLD PACK ELECTRIC STIMULATION UNA THERAPEUTIC EXERCISES NEUROMUSCULAR RE-ED MANUAL THERAPY FUNC ACTIVITY 15 MIN HOT/COLD PACK ELECTRIC STIMULATION UNA THERAPEUTIC EXERCISES NEUROMUSCULAR RE-ED MANUAL THERAPY FUNC ACTIVITY 15 MIN HOT/COLD PACK ELECTRIC STIMULATION UNA PT RE-EVALUATION THERAPEUTIC EXERCISES NEUROMUSCULAR RE-ED MANUAL THERAPY FUNC ACTIVITY 15 MIN HOT/COLD PACK ELECTRIC STIMULATION UNATT THERAPEUTIC EXERCISES NEUROMUSCULAR RE-ED MANUAL THERAPY FUNC ACTIVITY 15 MIN HOT/COLD PACK ELECTRIC STIMULATION UNATT THERAPEUTIC EXERCISES NEUROMUSCULAR RE-ED MANUAL THERAPY FUNC ACTIVITY 15 MIN HOT/COLD PACK ELECTRIC STIMULATION UNATT THERAPEUTIC EXERCISES MANUAL THERAPY FUNC ACTIVITY 15 MIN PT EVALUATION THERAPEUTIC EXERCISES MANUAL THERAPY FUNC ACTIVITY 15 MIN HOT/COLD PACK ELECTRIC STIMULATION UNATT Advance Directives Directive Yes / No Effective Date File Name No Information Encounters Encounter Description Practice Location Reason(s) For Visit Diagnoses Date Provider Providers Copied on Encounter [facility], [id number], tel:[phone] [facility] No Information Mike Rodriguez. [address] [facility] [address], [address] [address], . tel:[phone] [facility] [address], [id number], tel:[phone] [facility] No Information Jay Lobo. . Referring Provider: Christopher Nelson Jr, [address] [facility] [address], [address]. tel:[phone], [place], [id number], tel:[phone] [facility] No Information Leno Ramirez. [address] [facility] [address], [address] [address], . tel:[phone] Referring Provider: Christopher Nelson Jr, [address] [facility] [address], [place], [address]. tel:[phone] [place] [address], [place], [place], [address], tel:[phone] [facility] No Information Mike Rodriguez. [address] [facility] [address], [address], [place], [facility], . tel:[phone] Referring Provider: Christopher Nelson Jr, [address], [place], [address]. tel:[phone] [address], [place], [place], [id number], tel:[phone] [facility] No Information Mike Rodriguez. [address] [facility] [address], [address], [place], [facility], . tel:[phone] Referring Provider: Christopher Nelson Jr, [address], [place], [address]. tel:[phone] [address], [place], [place], [id number], tel:[phone] [facility] No Information Mike Rodriguez. [address] [facility] [address], [address], [place], [place], [facility], [place]. tel:[phone] Referring Provider: Christopher Nelson Jr, [address], [place], [address]. tel:[phone] [address], [place], [place], [address], tel:[phone] [facility] No Information Mike Rodriguez. [address] [facility] [address], [address], [place], [facility], . tel:[phone] Referring Provider: Christopher Nelson Jr, [address], [place], [address]. tel:[phone] [address], [place], [place], [address], tel:[phone] [facility] No Information Mike Rodriguez. [address] [facility], [address], [place], [facility], . tel:[phone] Referring Provider: Christopher Nelson Jr, [address], [place], [address]. tel:[phone] [address] [place] [address], [id number], tel:[phone] [facility] No Information Mike Rodriguez. [address] [facility], [address], [place], [facility], . tel:[phone] Referring Provider: Christopher Nelson Jr, [address], [place], [address]. tel:[phone], [id number], tel:[phone] [facility] No Information Mike Rodriguez. [address] [facility], [place], [facility], . tel:[phone] Referring Provider: Christopher Nelson Jr, [address], [place], [address]. tel:[phone] [address], [place], [id number], tel:[phone] [facility] Spinal stenosis of lumbar regionPain in joint involving shoulder region Mike Rodriguez. [address] [facility], [address], [place], [facility], . tel:[phone] Referring Provider: Christopher Nelson Jr, [address], [place], [address]. tel:[phone] Family History Family Member Type Diagnosis Age At Onset No Information Payers Payer name Insurance type Covered libertarian ID Adrilianna asifxena(s) No Information Social History Type Description Quantity Date Captured Comments Sex Female Smoking Status No Information Chief Complaint And Reason For Visit No Information Reason For Referral Reason For Referral No Information History Of Present Illness Encounter Date Complaint History Of Prese nt Illness No Information Functional Status Date Functional Assessmen t No Information Instructions Date Instruction Additional Infor mation No Information Assessments Type Assessment Date No Information Patient Care Teams Name Effective Dates (start - stop) Status Members No Information
--- OUTSIDE RECORDS SUMMARY | 2024-05-05 06:58 | XMS_ITS | Continuity of Care Document ---
Author Organization [facility] Address [address] [place] [address] [place] [address] Phone Care Team Providers Care Oxyhydrogen Welder Name Role Phone Evaristo Cook MD Unavailable Unavailable Advance Directives Directive Yes / No Effective Date File Name No Information Encounters Encounter Description Practice Location Reason(s) For Visit Diagnoses Date Provider Providers Copied on Encounter [facility], [address], [place], [place], [id number], [place] tel:[phone] [facility] No Information Aug- 3-200 5 Joey Loera. [address] [place], [place], [address], [place]. tel:[phone] Referring Provider: Evaristo Caputo, [address] [place], [address] . tel:[phone] Family History Family Member Type Diagnosis Age At Onset No Information Payers Payer name Insurance type Covered libertarian ID Authorshawandaa tixena(s) Medicaid [facility] [id number] Social History Type Description Quantity Date Captured [...]
== END 2024-05-05 06:54 | disposition home or self-care (01) ==
PROVIDERS: PCP Nurse Practitioner Family; Visit Provider Orthopaedic Surgery
DX: M75.101 Unspecified rotator cuff tear or rupture of right shoulder, not specified as traumatic (principal); M75.21 Bicipital tendinitis, right shoulder; M19.011 Primary osteoarthritis, right shoulder; M75.51 Bursitis of right shoulder
CPT/HCPCS: 73221